=== PATIENT | female | born 1940 | race Two or more races ===

== ENCOUNTER 2024-12-06 08:06 | Emergency (ER) | payer MEDICARE, OTHER ==
[~2024-12-06] VITALS: Ht 152.4 cm; Wt 74.8 kg
[2024-12-06] MEDS ORDERED: ACETAMINOPHEN 325 MG TABLET ONE (08:49)
[2024-12-06] MEDS: ACETAMINOPHEN 325 MG TABLET PO ONE (08:52)
[2024-12-06 09:08] LABS: BASOPHILS % (AUTO) 0.5 % (0.0-2.0); EOSINOPHILS # (AUTO) 0.1 K/uL (0.0-0.7); EOSINOPHILS % (AUTO) 0.8 % (0.0-6.0); HEMATOCRIT 41 % (33-45); HEMOGLOBIN 13.8 g/dL (11.5-14.8); LYMPHOCYTES # (AUTO) 1.7 K/uL (0.8-4.8); LYMPHOCYTES % (AUTO) 19.6 % (20.0-44.0); MEAN CORPUSCULAR HEMOGLOBIN 31 PG (26.0-33.0); MEAN CORPUSCULAR HGB CONC 33 g/dl (31.0-36.0); MEAN CORPUSCULAR VOLUME 92 fL (82-100); MONOCYTES # (AUTO) 0.6 K/uL (0.1-1.30); MONOCYTES % (AUTO) 6.4 % (2.0-12.0); NEUTROPHILS # (AUTO) 6.5 K/uL (1.8-8.9); NEUTROPHILS % (AUTO) 72.7 % (43.0-81.0); PLATELET COUNT (AUTO) 275 K/uL (150-450); RED BLOOD CELL COUNT(AUTO) 4.49 MIL/uL (4.0-5.2); RED CELL DISTRIBUTION WIDTH 12.8 % (11.5-15.0); WHITE BLOOD COUNT (AUTO) 8.9 K/uL (4.3-11.0)
[2024-12-06 09:21] LABS: PROTHROMBIN TIME 10.6 SECS (9.2-11.1)
[2024-12-06 09:24] LABS: CALCIUM, SERUM 8.8 mg/dL (8.5-10.1); CARBON DIOXIDE 25 mmol/L (21-32); CHLORIDE 103 mmol/L (98-107); CREATININE 0.6 mg/dL (0.6-1.3); GLUCOSE 133 mg/dL (74-106); POTASSIUM 3.8 mmol/L (3.5-5.1); SODIUM SERUM 139 mmol/L (136-145); UREA NITROGEN, BLOOD 17 mg/dL (7-18)
[2024-12-06 09:32] LABS: THYROID STIMULATING HORMONE 0.77 uIU/mL (0.358-3.74)
[2024-12-06 09:36] LABS: ALANINE AMINOTRANSFERASE 32 U/L (12-78); ALBUMIN 3.3 g/dL (3.4-5.0); ALKALINE PHOSPHATASE 79 U/L (46-116); ASPARTATE AMINOTRANSFERASE 23 U/L (15-37); BILIRUBIN,DIRECT 0.2 mg/dL (0.0-0.2); BILIRUBIN,TOTAL 0.9 mg/dL (0.2-1.0); NT-PRO BNP 173 pg/mL (0-125)
[2024-12-06] MEDS ORDERED: KETOROLAC TROMETHAMINE 15 MG/ML VIAL ONE (10:36)
[2024-12-06] MEDS: KETOROLAC TROMETHAMINE 15 MG/ML VIAL IV ONE (10:41)
[2024-12-06 14:18] VITALS: BP 138/72; TEMP 98.3; O2SAT 97
== END 2024-12-06 14:18 | disposition home or self-care (01) ==
LOC: ER 09:14
DX: M79.602 Pain in left arm (principal); M79.605 Pain in left leg; E11.9 Type 2 diabetes mellitus without complications; E78.5 Hyperlipidemia, unspecified; I10 Essential (primary) hypertension; M19.012 Primary osteoarthritis, left shoulder; Z88.0 Allergy status to penicillin; Z88.5 Allergy status to narcotic agent
CPT/HCPCS: 99285; 96374; 71045; 93005; 73030; 85025; 80048; 82550; 80076; 36415; 84443; 84484; 85730; 83880; 93971 ×2; J1885